=== PATIENT | male | born 1965 | race Caucasian/White ===

== ENCOUNTER 2019-05-08 21:01 | Emergency (ER) | payer BC, SELFPAY ==
[2019-05-08 21:10] VITALS: BP 147/98; PULSE 71; RESP 16; TEMP 36.6; O2SAT 95; BMI 23.7
--- NOTE | 2019-05-08 21:11 | ED_ITS ---
HPI - URI/Sore Throat General Chief Complaint: Upper Respiratory Symptoms Stated Complaint: cold for over a week Time Seen by Provider: 05/08/19 21:05 Source: patient and family Mode of arrival: Ambulatory Limitations: no limitations History of Present Illness HPI Narrative: 53-year-old male nonsmoker with noncontributory medical history presents with his and the chief complaint of a cold for a week. He has a runny nose and a dry cough that seems to be worse at night and when he lays flat. He has tried taking some [id number]-[id number] Sudafed and his got him an eytt-[id number]-zyzkqqe cough medicine today which doesn't seem to be helping too much. He does not have a sore throat and has developed a bit of a headache with all the coughing. He has had no fever or chills. He has no nausea, vomiting or diarrhea. He has no body aches, rash or exposure to ill persons. He is otherwise well and free of complaint MD Complaint: cough, rhinorrhea and nasal congestion Onset (ago): day(s) Duration: intermittent Severity: mild Exacerbating factors: other Able to tolerate fluids by mouth: Yes Associated symptoms: denies other symptoms Treatments prior to arrival: none Related Data Previous Rx's Medication Instructions Recorded benzonatate [Tessalon Perles] 100 mg PO TID PRN #14 cap 05/08/19 Allergies Allergy/AdvReac Type Severity Reaction Status Date / Time No Known Drug Allergies Allergy Verified 05/08/19 21:12 Review of Systems Constitutional Constitutional: Denies chills, Denies fatigue, Denies fever(s), Denies frequent falls, Denies lethargy and Denies weakness Eyes Eyes: Denies change in vision, Denies eye discharge, Denies irritation and Denies loss of vision ENT Ears, Nose, Mouth, and Throat: Denies change in voice, Denies dizziness, Reports nasal congestion, Denies neck pain, Denies sore throat and Denies throat swelling Cardiovascular Cardiovascular: Denies chest pain, Denies irregular heart rhythm, Denies lightheadedness, Denies palpitations, Denies dyspnea, Denies dyspnea on exertion and Denies orthopnea Respiratory Respiratory: Reports cough, Denies dyspnea, Denies dyspnea on exertion and Denies wheezing Gastrointestinal Gastrointestinal: Denies abdominal pain, Denies change in bowel habits, Denies diarrhea, Denies nausea and Denies vomiting Genitourinary Genitourinary: Denies hematuria, Denies flank pain, Denies urinary incontinence and Denies urinary urgency Musculoskeletal Musculoskeletal: Denies back pain, Denies muscle weakness, Denies neck pain, Denies numbness and Denies tingling Integumentary/Breasts Skin/Breast: Denies pruritus, Denies erythema, Denies rash and Denies wounds Neurologic Neurologic: Denies behavioral changes, Denies confusion, Denies dizziness, Denies frequent falls, Denies loss of vision, Denies numbness, Denies tingling and Denies weakness Psychiatric Psychiatric: Denies anxiety, Denies behavioral changes, Denies confusion, Denies depression, Denies homicidal ideation and Denies suicidal ideation Endocrine Endocrine: Denies fatigue, Denies flushing and Denies palpitations Hematologic/Lymphatic Hematologic/Lymphatic: Denies easy bruising Allergic/Immunologic Allergic/Immunologic: Denies urticaria, Denies throat swelling and Denies whe ezing Patient History Social History Smoking Status: Never smoker Smoking Status: Never smoker Exam Narrative Exam Narrative: GENERAL: [53] year old patient appears stated age. Well- nourished, well-developed patient, in mild distress. HEAD: Atraumatic. Normocephalic. EYES: Pupils equal round and reactive. Extraocular motions intact. No scleral icterus. No injection or drainage. ENT: Clear post nasal drip. Nose without bleeding, purulent drainage. Throat without erythema, tonsillar hypertrophy or exudate. Airway patent. NECK: Trachea midline. Non tender CARDIOVASCULAR: Regular rate and rhythm without murmurs, gallops, or rubs. RESPIRATORY: Clear to auscultation. Breath sounds equal bilaterally. No wheezes, rales, or rhonchi. GASTROINTESTINAL: Abdomen soft, non-tender, nondistended. EXTREMITIES: No edema or joint tenderness. BACK: Nontender without deformity or crepitance. No flank tenderness. NEURO: AOx3. SKIN: No rash or erythema of visible areas Initial Vital Signs Initial Vital Signs: Vital Signs Temperature 97.8 F 05/08/19 21:10 Pulse Rate 71 05/08/19 21:10 Respiratory Rate 16 05/08/19 21:10 Blood Pressure 147/98 H 05/08/19 21:10 Pulse Oximetry 95 12/28/19 21:10 Course Orders Ordered: ED Orders 05/08/19 21:12 XR chest 2V Stat 05/08/19 21:21 Influenza A & B (PCR) Stat Vital Signs Vital signs: Vital Signs - 8 hr 05/08/19 21:10 Temperature 97.8 F Pulse Rate 71 Respiratory Rate 16 Blood Pressure 147/98 H Pulse Oximetry 95 MDM - URI/Sore Throat Lab Data Labs: Lab Results 05/08/19 Range/Units 21:21 Influenza A (RT-PCR) Flu a negative (NEGATIVE) Influenza B (RT-PCR) Flu b negative (NEGATIVE) Imaging Data Chest x-ray: Radiologist's Impression: [address] [address] XRay Report Signed Patient: Carl Donato KMR#: [id number] : 1965Acct:[id number] Age/Sex: 53 / MDate of Service: 05/08/19 Loc: ED Accession Number: [id number] Procedure: XR chest 2V Ordering Provider: Gerald Jain D.O. PROCEDURE: XR CHEST 2V INDICATIONS: cough TECHNIQUE: 2 views of the chest were acquired. COMPARISON: None. FINDINGS: Surgical changes and devices: None. Lungs and pleura: Lungs are clear. No pleural effusions or pneumothorax. Mediastinum: Mediastinal contours are normal. Heart size is normal. Bones and chest wall: No suspicious bony abnormalities. Soft tissues appear unremarkable. IMPRESSION: No acute process. Dictated by: Stanton Lorenzo M.D. on 05/08/2019 at 21:46 Approved by: Stanton Lorenzo M.D. on 05/08/2019 at 21:46 Discharge Plan Departure Patient Disposition: Home Clinical Impression: Cough Upper respiratory infection Qualifiers: URI type: unspecified viral URI Qualified Code(s): J06.9 - Acute upper respiratory infection, unspecified Discharge Date/Time: 05/08/19 21:58 Instructions: DI for Viral Upper Respiratory Infection -- Adult Activity Restrictions/Additional Instructions: *You have been diagnosed with [viral upper respiratory infection with dry cough] *What to do: *Take medications as directed: consider over the counter antihistamines such as Zyrtec, Ciara or Claritin to help dry the secretions which are likely contributing to her cough *Follow up with your primary care provider in 2-3 days, call for an appointment. Let them know you were seen in the Emergency Department and that we ask that you be seen in follow up *Return to ER if you should have any new, worsening or concerning symptoms Prescriptions: New benzonatate [Tessalon Perles] 100 mg capsule 100 mg PO TID PRN (Reason: cough) Qty: 14 RF: 0
[2019-05-08 21:59] LABS: Influenza A - CEPHEID Flu A NEGATIVE (NEGATIVE); Influenza B - CEPHEID Flu B NEGATIVE (NEGATIVE)
== END 2019-05-08 21:58 | disposition home or self-care (01) ==
PROVIDERS: Emergency Provider Emergency Medicine
DX: J06.9 Acute upper respiratory infection, unspecified (principal)
CPT/HCPCS: 71046; 87502; 99282; 99284